=== PATIENT | female | born 1970 | race Caucasian/White ===

== ENCOUNTER → 2017-01-30 | Outpatient (CLI) | payer BC ==
[~2017-01-30] MED LIST: AMOXICILLIN500 MG PO; BIRTH CONTROL1 EAC1 PO; CILOXAN 10 ML10 ML OT; CILOXAN 5 ML5 M1 OT; CIPRODEX 0.3%-7.5 M1; CIPROFLOXACIN500 MG PO; DIFLUCAN150 MG PO; EFFEXOR75 MG PO; FLEXERIL10 MG PO; FLEXERIL5 MG PO; HYDROCODONE BIT1 T11 PO; KEFLEX500 MG PO; LEVOFLOXACIN500 MG PO; LOMOTIL 0.025 M1 TA1 PO; MEDROL DOSEPAK4 MG PO; MOTRIN800 MG PO; Motrin,Rufen800 MG PO; NASONEX0.05 MG/AC NAS; PEPCID20 MG PO; PERCOCET 325 MG1 TA2 PO; PROTONIX40 MG PO; VICODIN 500 MG-1 TAB PO; VICODIN ES 7501 TAB PO; ZOFRAN ODT4 MG PO; ZOFRAN ODT4 MG SL; ZOFRAN4 MG PO; ZOLOFT50 MG PO; ZYRTEC10 M3 PO; Zofran4 MG PO
== END | disposition home or self-care (01) ==
LOC: RAD 16:08
DX: M25.561 Pain in right knee (principal)

== ENCOUNTER → 2017-02-24 | Outpatient (CLI) | payer BC ==
[2017-02-24 09:04] LABS: BASO % 0.4 % (0.0-1.0); EOS # 0.2 10*3/uL (0.0-0.4); EOS % 1.6 % (1.0-4.0); HEMATOCRIT 40.2 % (37.0-47.0); HEMOGLOBIN 12.8 g/dl (12.0-16.0); LYMPH # 2.4 10*3/uL (1.3-4.4); LYMPH % 24.1 % (27.0-41.0); MEAN CELL VOLUME 82.5 fl (81.0-99.0); MEAN CORPUSCULAR HGB 26.3 pg (27.0-31.0); MEAN CORPUSCULAR HGB CONC 31.8 g/dl (33.0-37.0); MEAN PLATELET VOLUME 10.5 fl (9.6-12.3); MONO # 0.8 10*3/uL (0.1-1.0); MONO % 7.5 % (3.0-9.0); NEUT # 6.7 10*3/uL (2.3-7.9); NEUT % 66.1 % (47.0-73.0); PLATELET COUNT AUTOMATED 273 10*3/uL (130-400); RED BLOOD COUNT 4.87 10*6/uL (4.10-5.10); RED CELL DISTRI WIDTH 14.8 % (0-14.5); WHITE BLOOD COUNT 10.1 10*3/uL (4.8-10.8)
[2017-02-24 09:29] LABS: ALBUMIN 3.7 gm/dl (3.1-4.5); ALKALINE PHOSPHATASE 81 U/L (45-117); BILIRUBIN, DIRECT < 0.1 mg/dL (0.0-0.2); BILIRUBIN, TOTAL 0.5 mg/dl (0.2-1.0); BUN 11 mg/dl (7-24); CARBON DIOXIDE 31 mmol/L (21-32); CHLORIDE 102 mmol/L (98-107); CHOLESTEROL 234 mg/dL (<200); EST GLOM FILT AFRICAN AMERICAN > 60 ml/min; GLUCOSE 92 mg/dL (65-99); HDL CHOLESTEROL 67 mg/dl (40-60); LDL CHOLESTEROL 139 mg/dL (9-159); POTASSIUM 4.5 mmol/L (3.5-5.1); SGOT/AST 10 IU/L (3-35); SGPT/ALT 17 U/L (12-78); SODIUM 140 mmol/L (136-145); THYROXINE (T4) TOTAL 10.4 ug/dl (4.8-13.9); TOTAL PROTEIN 7.4 gm/dL (6.4-8.2); TRIGLYCERIDES 138 mg/dl (<150); VLDL CHOLESTEROL 28 mg/dL (6-40)
[2017-02-25 07:06] LABS: FREE T3 010389 3.1 pg/mL (2.0-4.4)
[2017-02-25 08:08] LABS: RHEUMATOID ARTHRITIS FACTOR <10.0 IU/mL (0.0-13.9)
== END | disposition home or self-care (01) ==
LOC: LAB 08:35
PROVIDERS: Family Medicine
DX: R53.83 Other fatigue (principal); M25.50 Pain in unspecified joint

== ENCOUNTER 2017-05-04 19:41 | Emergency (ER) | payer BC ==
[~2017-05-04] VITALS: Ht 157.4 cm; Wt 70.3 kg
[2017-05-04 19:57] VITALS: BP 152/88
[2017-05-04 20:08] LABS: BASO # 0.1 10*3/uL (0.0-0.1); BASO % 0.4 % (0.0-1.0); EOS # 0.1 10*3/uL (0.0-0.4); EOS % 0.9 % (1.0-4.0); HEMATOCRIT 39.7 % (37.0-47.0); HEMOGLOBIN 12.8 g/dl (12.0-16.0); LYMPH % 27.6 % (27.0-41.0); MEAN CELL VOLUME 84.5 fl (81.0-99.0); MEAN CORPUSCULAR HGB 27.2 pg (27.0-31.0); MEAN CORPUSCULAR HGB CONC 32.2 g/dl (33.0-37.0); MEAN PLATELET VOLUME 10.2 fl (9.6-12.3); MONO # 0.9 10*3/uL (0.1-1.0); MONO % 5.9 % (3.0-9.0); NEUT # 9.3 10*3/uL (2.3-7.9); NEUT % 64.6 % (47.0-73.0); PLATELET COUNT AUTOMATED 315 10*3/uL (130-400); RED CELL DISTRI WIDTH 13.2 % (0-14.5); WHITE BLOOD COUNT 14.4 10*3/uL (4.8-10.8)
[2017-05-04 20:23] LABS: ALBUMIN 3.8 gm/dl (3.1-4.5); ALKALINE PHOSPHATASE 73 U/L (45-117); BUN 15 mg/dl (7-24); CHLORIDE 104 mmol/L (98-107); CREATININE 0.79 mg/dL (0.55-1.02); POTASSIUM 4.1 mmol/L (3.5-5.1); SGOT/AST 11 IU/L (3-35); SGPT/ALT 14 U/L (12-78); SODIUM 136 mmol/L (136-145); TOTAL PROTEIN 7.3 gm/dL (6.4-8.2)
[2017-05-04 20:26] LABS: BETA-HCG, QUANT < 1.0 mIU/mL (1-3)
== END 2017-05-04 22:21 | disposition home or self-care (01) ==
LOC: ED 19:41
PROVIDERS: Student in an Organized Health Care Education/Training Program
DX: R22.1 Localized swelling, mass and lump, neck (principal); Z79.899 Other long term (current) drug therapy

== ENCOUNTER 2017-06-28 03:39 | Emergency (ER) | payer BC ==
[~2017-06-28] VITALS: Ht 157.4 cm; Wt 73.5 kg
[2017-06-28 03:46] VITALS: BP 154/99
[2017-06-28 04:37] LABS: BASO % 0.5 % (0.0-1.0); EOS # 0.2 10*3/uL (0.0-0.4); EOS % 2.7 % (1.0-4.0); LYMPH # 3.4 10*3/uL (1.3-4.4); LYMPH % 39.7 % (27.0-41.0); MEAN CORPUSCULAR HGB 27.3 pg (27.0-31.0); MEAN CORPUSCULAR HGB CONC 32.5 g/dl (33.0-37.0); MEAN PLATELET VOLUME 9.8 fl (9.6-12.3); MONO # 0.6 10*3/uL (0.1-1.0); MONO % 7.3 % (3.0-9.0); NEUT # 4.2 10*3/uL (2.3-7.9); NEUT % 49.5 % (47.0-73.0); PLATELET COUNT AUTOMATED 263 10*3/uL (130-400); RED BLOOD COUNT 4.76 10*6/uL (4.10-5.10); RED CELL DISTRI WIDTH 12.6 % (0-14.5); WHITE BLOOD COUNT 8.6 10*3/uL (4.8-10.8)
[2017-06-28 04:53] LABS: ALBUMIN 3.4 gm/dl (3.1-4.5); ALKALINE PHOSPHATASE 75 U/L (45-117); BUN 10 mg/dl (7-24); CHLORIDE 102 mmol/L (98-107); CREATININE 0.71 mg/dL (0.55-1.02); POTASSIUM 4.1 mmol/L (3.5-5.1); SGOT/AST 11 IU/L (3-35); SGPT/ALT 14 U/L (12-78); SODIUM 138 mmol/L (136-145); TOTAL PROTEIN 6.9 gm/dL (6.4-8.2)
[2017-06-28] MEDS ORDERED: ULTRAM50 MG PO (06:55)
== END 2017-06-28 07:10 | disposition home or self-care (01) ==
LOC: ED 03:39
PROVIDERS: Emergency Medicine Emergency Medical Services
DX: M54.2 Cervicalgia (principal); G89.29 Other chronic pain; R22.0 Localized swelling, mass and lump, head; Z98.890 Other specified postprocedural states; Z79.899 Other long term (current) drug therapy; Z91.018 Allergy to other foods

== ENCOUNTER 2017-09-26 18:44 | Emergency (ER) | payer BC ==
[~2017-09-26] VITALS: Ht 157.4 cm; Wt 68.0 kg
[~2017-09-26 18:44] MED LIST changes: +ULTRAM50 MG PO
[2017-09-26 19:23] VITALS: BP 139/76
[2017-09-26] MEDS ORDERED: PREDNISONE20 M1 PO (20:47)
[2017-09-26] MEDS ORDERED: ZITHROMAX250 MG PO (20:47)
[2017-09-26] MEDS ORDERED: DUONEB 3 MG/3 ML3 M1 INH (20:48)
== END 2017-09-26 20:50 | disposition home or self-care (01) ==
LOC: ED 18:44
DX: J01.00 Acute maxillary sinusitis, unspecified (principal); J20.9 Acute bronchitis, unspecified; Z98.890 Other specified postprocedural states; Z79.899 Other long term (current) drug therapy

== ENCOUNTER 2018-06-12 08:41 | Emergency (ER) | payer SELFPAY ==
[~2018-06-12] VITALS: Ht 157.4 cm; Wt 66.7 kg
[~2018-06-12 08:41] MED LIST changes: +DUONEB 3 MG/3 ML3 M1 INH; +PREDNISONE20 M1 PO; +ZITHROMAX250 MG PO
[2018-06-12 09:08] LABS: BASO # 0.1 10*3/uL (0.0-0.1); BASO % 0.6 % (0.0-1.0); EOS # 0.2 10*3/uL (0.0-0.4); EOS % 2.4 % (1.0-4.0); HEMOGLOBIN 13.8 g/dl (12.0-16.0); LYMPH # 2.5 10*3/uL (1.3-4.4); LYMPH % 29.4 % (27.0-41.0); MEAN CELL VOLUME 88.1 fl (81.0-99.0); MEAN CORPUSCULAR HGB 28.9 pg (27.0-31.0); MEAN CORPUSCULAR HGB CONC 32.9 g/dl (33.0-37.0); MEAN PLATELET VOLUME 10.3 fl (9.6-12.3); MONO # 0.6 10*3/uL (0.1-1.0); MONO % 6.8 % (3.0-9.0); NEUT # 5.1 10*3/uL (2.3-7.9); NEUT % 60.3 % (47.0-73.0); PLATELET COUNT AUTOMATED 240 10*3/uL (130-400); RED BLOOD COUNT 4.77 10*6/uL (4.10-5.10); RED CELL DISTRI WIDTH 12.2 % (0-14.5); WHITE BLOOD COUNT 8.5 10*3/uL (4.8-10.8)
[2018-06-12 09:20] LABS: ALBUMIN 3.7 gm/dl (3.1-4.5); ALKALINE PHOSPHATASE 84 U/L (45-117); BUN 12 mg/dl (7-24); CHLORIDE 103 mmol/L (98-107); CREATININE 0.74 mg/dL (0.55-1.02); LIPASE 140 U/L (73-393); SGOT/AST 13 IU/L (3-35); SGPT/ALT 19 U/L (12-78); SODIUM 137 mmol/L (136-145); TOTAL PROTEIN 7.3 gm/dL (6.4-8.2)
[2018-06-12 09:38] VITALS: BP 142/84
[2018-06-12 10:17] LABS: BILIRUBIN NEGATIVE (NEGATIVE); BLOOD NEGATIVE (NEGATIVE); CLARITY CLEAR (CLEAR); COLOR STRAW (YELLOW); GLUCOSE NEGATIVE (NEGATIVE); KETONE NEGATIVE (NEGATIVE); LEUKO ESTERASE NEGATIVE (NEGATIVE); NITRITE NEGATIVE (NEGATIVE); SPECIFIC GRAVITY <= 1.005 (1.005-1.030); UROBILINOGEN 0.2 E.U./dl (0.2-1.0)
[2018-06-12 10:38] LABS: BACTERIA TRACE; WBC 0-2 wbc/hpf (0-5)
[2018-06-12] MEDS ORDERED: ZOFRAN ODT4 MG SL ×2 (12:31→12:32)
== END 2018-06-12 12:31 | disposition home or self-care (01) ==
LOC: ED 08:41
PROVIDERS: Emergency Medicine
DX: R10.9 Unspecified abdominal pain (principal); M54.9 Dorsalgia, unspecified; R11.2 Nausea with vomiting, unspecified; R19.7 Diarrhea, unspecified; Z87.442 Personal history of urinary calculi; Z79.899 Other long term (current) drug therapy; Z98.890 Other specified postprocedural states

== ENCOUNTER → 2020-07-01 | Outpatient (CLI) | payer BC ==
[~2020-07-01] MED LIST changes: +IBU800 M1 PO; +Percocet 325 MG1 TAB PO
== END | disposition home or self-care (01) ==
LOC: COVID19 02:33
PROVIDERS: ATTEND Obstetrics & Gynecology
DX: N93.9 Abnormal uterine and vaginal bleeding, unspecified (principal); D25.9 Leiomyoma of uterus, unspecified; N94.9 Unspecified condition associated with female genital organs and menstrual cycle; Z20.828 Contact with and (suspected) exposure to other viral communicable diseases

== ENCOUNTER → 2020-07-01 | Outpatient (CLI) | payer BC | END | disposition home or self-care (01) | LOC: LAB 10:48 | PROVIDERS: ATTEND Obstetrics & Gynecology | DX: D25.9 Leiomyoma of uterus, unspecified (principal); R10.2 Pelvic and perineal pain; N93.9 Abnormal uterine and vaginal bleeding, unspecified ==

== ENCOUNTER 2020-07-06 00:50 | Inpatient (IN) | payer BC ==
[2020-07-01 11:06] VITALS: BP 148/89
[2020-07-06] VITALS (10 sets, daily range): BP systolic 115–161; BP diastolic 63–91
[~2020-07-06] VITALS: Ht 157.5 cm; Wt 68.0 kg
[~2020-07-06 00:50] MED LIST changes: -IBU800 M1 PO; -Percocet 325 MG1 TAB PO
[2020-07-07] VITALS: BP 141/72
[2020-07-07 07:02] LABS: BASO % 0.1 % (0.0-1.0); HEMATOCRIT 34.1 % (37.0-47.0); LYMPH # 2.1 10*3/uL (1.3-4.4); LYMPH % 16.9 % (27.0-41.0); MEAN CELL VOLUME 87.9 fl (81.0-99.0); MEAN CORPUSCULAR HGB 28.4 pg (27.0-31.0); MEAN CORPUSCULAR HGB CONC 32.3 g/dl (33.0-37.0); MEAN PLATELET VOLUME 10.5 fl (9.6-12.3); MONO # 1.3 10*3/uL (0.1-1.0); MONO % 10.7 % (3.0-9.0); NEUT # 8.8 10*3/uL (2.3-7.9); NEUT % 72.1 % (47.0-73.0); PLATELET COUNT AUTOMATED 251 10*3/uL (130-400); RED BLOOD COUNT 3.88 10*6/uL (4.10-5.10); RED CELL DISTRI WIDTH 12.2 % (0-14.5); WHITE BLOOD COUNT 12.1 10*3/uL (4.8-10.8)
[2020-07-07 08:00] VITALS: BP 154/83
[2020-07-07 12:00] VITALS: BP 126/69
[2020-07-07 16:00] VITALS: BP 121/64; BP 132/79
[2020-07-07 20:00] VITALS: BP 129/71
[2020-07-08] VITALS: BP 131/72
[2020-07-08 08:00] VITALS: BP 129/82
[2020-07-08] MEDS ORDERED: Percocet 325 MG1 TAB PO (11:46)
[2020-07-08] MEDS ORDERED: IBU800 M1 PO (11:46)
[2020-07-08] MEDS ORDERED: ZOFRAN4 MG PO (11:46)
[2020-07-08 12:00] VITALS: BP 127/68
== END 2020-07-08 14:12 | disposition home or self-care (01) | DRG 742 ==
LOC: SDC 00:50 → 4E 09:03 → SDC 09:30 → 4E 07-08 14:12
PROVIDERS: ADMIT Obstetrics & Gynecology; ATTEND Obstetrics & Gynecology
PROC: 0UT90ZZ Resection of Uterus, Open Approach (ICD-10-PCS; principal; 2020-07-06)
PROC: 0UB70ZZ Excision of Bilateral Fallopian Tubes, Open Approach (ICD-10-PCS; 2020-07-06)
PROC: 0UB20ZZ Excision of Bilateral Ovaries, Open Approach (ICD-10-PCS; 2020-07-06)
DX: N93.9 Abnormal uterine and vaginal bleeding, unspecified (principal); D62 Acute posthemorrhagic anemia; D25.9 Leiomyoma of uterus, unspecified; N73.6 Female pelvic peritoneal adhesions (postinfective); Z90.710 Acquired absence of both cervix and uterus; Z90.722 Acquired absence of ovaries, bilateral; Z90.79 Acquired absence of other genital organ(s); Z30.2 Encounter for sterilization

== ENCOUNTER → 2020-12-16 | Outpatient (CLI) | payer BC ==
[~2020-12-16] MED LIST changes: +IBU800 M1 PO; +Percocet 325 MG1 TAB PO
== END | disposition home or self-care (01) ==
LOC: US 07:19
PROVIDERS: ATTEND Obstetrics & Gynecology
DX: K82.8 Other specified diseases of gallbladder (principal); N94.10 Unspecified dyspareunia; Z90.710 Acquired absence of both cervix and uterus; Z90.722 Acquired absence of ovaries, bilateral

== ENCOUNTER → 2021-01-12 | Outpatient (CLI) | payer BC | END | disposition home or self-care (01) | LOC: CT 07:48 | PROVIDERS: ATTEND Obstetrics & Gynecology | DX: K42.9 Umbilical hernia without obstruction or gangrene (principal); N94.10 Unspecified dyspareunia; Z90.710 Acquired absence of both cervix and uterus ==

== ENCOUNTER 2021-04-02 13:41 | Emergency (ER) | payer BC ==
[~2021-04-02] VITALS: Ht 157.4 cm; Wt 65.8 kg
[2021-04-02 13:56] VITALS: BP 129/79
== END 2021-04-02 16:07 | disposition home or self-care (01) ==
LOC: ED 13:41
DX: S23.41XA Sprain of ribs, initial encounter (principal); Z79.899 Other long term (current) drug therapy; Z98.890 Other specified postprocedural states; Z96.22 Myringotomy tube(s) status; X50.9XXA Other and unspecified overexertion or strenuous movements or postures, initial encounter; Y93.89 Activity, other specified; Y92.89 Other specified places as the place of occurrence of the external cause; Y99.8 Other external cause status

== ENCOUNTER 2021-10-16 22:08 | Emergency (ER) | payer BC ==
[2021-10-16 22:18] VITALS: BP 165/82
== END 2021-10-16 22:46 | disposition home or self-care (01) ==
LOC: ED 22:08
DX: S61.213A Laceration without foreign body of left middle finger without damage to nail, initial encounter (principal); W26.0XXA Contact with knife, initial encounter; Y93.89 Activity, other specified; Y92.89 Other specified places as the place of occurrence of the external cause; Y99.8 Other external cause status

== ENCOUNTER 2022-03-15 21:15 | Emergency (ER) | payer BC ==
[~2022-03-15] VITALS: Ht 157.4 cm; Wt 68.0 kg
[2022-03-15] MEDS ORDERED: ZOLOFT50 MG PO (21:23)
[2022-03-15] MEDS ORDERED: ZIAC 5-6.25 MG1 EACH PO (21:24)
[2022-03-15 21:48] LABS: BASO # 0.1 10*3/uL (0.0-0.1); BASO % 0.5 % (0.0-1.0); EOS # 0.1 10*3/uL (0.0-0.4); EOS % 1.3 % (1.0-4.0); LYMPH # 3.8 10*3/uL (1.3-4.4); LYMPH % 36.6 % (27.0-41.0); MEAN CELL VOLUME 88.7 fl (81.0-99.0); MEAN CORPUSCULAR HGB 28.8 pg (27.0-31.0); MEAN CORPUSCULAR HGB CONC 32.4 g/dl (33.0-37.0); MEAN PLATELET VOLUME 10.8 fl (9.6-12.3); MONO # 0.8 10*3/uL (0.1-1.0); MONO % 7.9 % (3.0-9.0); NEUT # 5.5 10*3/uL (2.3-7.9); NEUT % 53.4 % (47.0-73.0); PLATELET COUNT AUTOMATED 282 10*3/uL (130-400); RED BLOOD COUNT 4.62 10*6/uL (4.10-5.10); RED CELL DISTRI WIDTH 12.5 % (0-14.5); WHITE BLOOD COUNT 10.3 10*3/uL (4.8-10.8)
[2022-03-15 22:05] LABS: ALKALINE PHOSPHATASE 77 U/L (45-117); BUN 17 mg/dl (7-24); CHLORIDE 107 mmol/L (98-107); CREATININE 0.85 mg/dL (0.55-1.02); LIPASE 163 U/L (73-393); POTASSIUM 3.5 mmol/L (3.5-5.1); SGOT/AST 10 IU/L (3-35); SGPT/ALT 16 U/L (12-78); SODIUM 143 mmol/L (136-145); TOTAL PROTEIN 7.1 gm/dL (6.4-8.2)
[2022-03-15 22:55] VITALS: BP 118/69
[2022-03-15 23:17] LABS: BILIRUBIN Negative (Negative); BLOOD Negative (Negative); CLARITY Clear (Clear); COLOR Yellow (Yellow); GLUCOSE Negative (Negative); KETONE Negative (Negative); LEUKO ESTERASE Negative (Negative); NITRITE Negative (Negative); SPECIFIC GRAVITY >= 1.030 (1.001-1.030); UROBILINOGEN 0.2 E.U./dl (0.0-1.0)
[2022-03-16] MEDS ORDERED: PROTONIX40 MG PO (00:41)
[2022-03-16] MEDS ORDERED: Percocet 325 MG1 TAB PO (00:41)
[2022-03-16] MEDS ORDERED: Ondansetron4 MG PO (00:41)
== END 2022-03-16 00:40 | disposition home or self-care (01) ==
LOC: ED 21:15
PROVIDERS: Emergency Medicine
DX: K80.50 Calculus of bile duct without cholangitis or cholecystitis without obstruction (principal); Z98.890 Other specified postprocedural states; Z79.899 Other long term (current) drug therapy

== ENCOUNTER → 2022-04-13 | Outpatient (CLI) | payer BC ==
[~2022-04-13] MED LIST changes: +Ondansetron4 MG PO; +ZIAC 5-6.25 MG1 EACH PO
== END | disposition home or self-care (01) ==
LOC: RAD 08:29
PROVIDERS: ATTEND Specialist
DX: U09.9 Post COVID-19 condition, unspecified (principal)

== ENCOUNTER → 2022-08-15 | Day surgery (SDC) | payer BC ==
[2022-08-09 08:19] VITALS: BP 150/80
[~2022-08-15] VITALS: Ht 154.9 cm; Wt 68.0 kg
[2022-08-15 10:25] VITALS: BP 148/88
[2022-08-15 12:17] VITALS: BP 129/79
[2022-08-15 12:32] VITALS: BP 121/71
[2022-08-15 12:47] VITALS: BP 120/67
[2022-08-15 15:33] VITALS: BP 129/79
== END | disposition home or self-care (01) ==
LOC: SDC 08-04 11:00
PROVIDERS: ATTEND Specialist
DX: H65.493 Other chronic nonsuppurative otitis media, bilateral (principal); F32.A Depression, unspecified; F41.9 Anxiety disorder, unspecified; J45.909 Unspecified asthma, uncomplicated; K21.9 Gastro-esophageal reflux disease without esophagitis; M79.7 Fibromyalgia